=== PATIENT | female | born 1945 | race Caucasian/White ===

== ENCOUNTER 2023-12-11 19:49 | Observation (INO) | payer MEDICARE, SELFPAY ==
[2023-12-11] VITALS (11 sets, daily range): BP systolic 144–174; BP diastolic 77–117; PULSE 71–85; RESP 15–30; TEMP 36.2–36.6; O2SAT 96–97; BMI 31.4
--- NOTE | 2023-12-11 20:20 | CT_ITS ---
EXAM: CT HEAD WITHOUT INTRAVENOUS CONTRAST CLINICAL INDICATION: confusion TECHNIQUE: Multiple axial images were obtained of the head without intravenous contrast. This CT exam was performed using one or more of the following dose reduction techniques: automated exposure control, adjustment of the mA and/or kV according to patient size, and/or use of iterative reconstruction technique. COMPARISON: No relevant prior studies available. FINDINGS: BRAIN AND EXTRA-AXIAL SPACES: There is encephalomalacia in the left parietal occipital lobe from remote infarct. There is hypoattenuation periventricular white matter. There is mild enlargement of ventricular system and cortical sulci. No intra- or extra-axial hemorrhage. No intracranial mass or mass effect. Posterior fossa structures are unremarkable. Basal cisterns are patent. BONES/JOINTS: Unremarkable. No discrete lytic or blastic abnormalities. SINUSES: Unremarkable as visualized. Clear. MASTOID AIR CELLS: Unremarkable. Clear. ORBITS: Visualized globes, extraocular muscles, optic nerves and retrobulbar fat appear unremarkable. CT/Brain/Head without Contrast IMPRESSION: 1. No acute intracranial abnormality. 2. Remote infarct in the left parietal-occipital region. 3. Underlying senescent change with small vessel ischemia. Electronically Signed: Jesse Pittman MD at 21:42 EDT ,
--- NOTE | 2023-12-11 20:22 | RAD_ITS ---
EXAM: XR LEFT FOOT COMPLETE, 3 OR MORE VIEWS CLINICAL INDICATION: pain TECHNIQUE: Frontal, lateral and oblique views of the left foot. COMPARISON: 06/03/2014 FINDINGS: BONES/JOINTS: Bones are osteopenic. There is hardware from previous fusion of the posterior subtalar, calcaneocuboid and talonavicular joints. No acute fracture. No subluxation. Normal alignment. No sclerotic or destructive changes observed. SOFT TISSUES: Unremarkable. No soft tissue swelling or gas. No radiopaque foreign body. RAD/Foot min 3 Views IMPRESSION: Osteopenia with no acute osseous abnormalities. There is hardware from previous fusion of several joints of the foot. Electronically Signed: Jesse Pittman MD at 21:48 EDT ,
[2023-12-11 20:33] LABS: Absolute Lymphocyte Count 1.07 X10^3/uL (0.83-4.51); Absolute Neutrophil Count 7.8 X10^3/uL (2.0-7.7); Basophil# 0.03 X10^3/uL; Basophil% 0.3 % (0-1); Eosinophil# 0.01 X10^3/uL; Eosinophils% 0.1 % (0-5); Hematocrit 37.1 % (37-47); Hemoglobin 12.6 g/dL (12.0-15.0); Lymphocyte # 1.07 X10^3/ul (0.83-4.51); Lymphocyte % 11.3 % (19-41); Mean Corpuscular Hgb 32.4 pg (27.0-32.0); Mean Corpuscular Volume 95.4 fL (81-99); Monocyte# 0.54 X10^3/uL; Monocyte% 5.7 % (0-10); NRBC Flagged by Analyzer 0 % (0-5); Neutrophil # 7.81 X10^3/uL (2.7-7.7); Neutrophil % 82.2 % (47-70); Platelet Count 183 K/mm3 (150-450); RBC Distribution Width CV 13.3 % (11.6-14.6); Red Blood Count 3.89 M/mm3 (4.2-5.4); White Blood Count 9.5 K/mm3 (4.4-11.0)
[2023-12-11 20:42] LABS: Bacteria 0 SEEN /hpf (None Seen); Mucous, Urine 0 SEEN /hpf (<or=2+); Red Blood Cells-Urine 0 SEEN /hpf (0-5); Squamous Epithelial Cells - UA 0 SEEN /hpf (5-10); White Blood Cells 0 SEEN /hpf (0-5)
[2023-12-11 20:43] LABS: Color, Urine Yellow (Yellow); Glucose, Dipstick Normal (Normal); Ketone-Dipstick Negative (Negative); Leukocyte Esterase-Dipstick Negative /ul (Negative); Nitrite-Dipstick Negative (Negative); Occult Blood-Urine Negative /ul (Negative); Protein-Dipstick Negative (Negative); Specific Gravity, Urine 1.015 (1.002-1.030); Urine Bilirubin Dipstick Negative (Negative); Urine Clarity Clear (Clear); Urine Urobilinogen Normal (Normal)
--- NOTE | 2023-12-11 20:48 | RAD_ITS ---
EXAM: XR CHEST, 2 VIEWS CLINICAL INDICATION: weakness TECHNIQUE: Frontal and lateral views of the chest. COMPARISON: No relevant prior studies available. FINDINGS: LUNGS AND PLEURAL SPACES: There is minimal right lower lobe airspace disease. No pneumothorax. No effusion. HEART: Unremarkable. Cardiac silhouette not enlarged. MEDIASTINUM: Central airways and mediastinal contour are unremarkable. BONES/JOINTS: Unremarkable. No acute fracture. SOFT TISSUES: Unremarkable. RAD/Chest PA and Lateral IMPRESSION: Minimal right lower lobe airspace disease which may represent atelectasis or early pneumonia. There are no effusions identified. Electronically Signed: Jesse Pittman MD at 21:45 EDT ,
[2023-12-11 20:50] LABS: Anion Gap 6 (5-15); BUN 20 mg/dL (7-18); BUN/Creat Ratio 15.7 RATIO (10-20); Chloride 107 mmol/L (98-107); Creatinine, Serum 1.27 mg/dL (0.55-1.02); EST Glomerular Filtration Rate 43 mL/min (>60); Est Glom Filt Rate - Afr Amer 52 mL/min (>60); Estimated Creatinine Clearance 36.82 ml/min; Glucose 141 mg/dL (74-106); Sodium Level 141 mmol/L (136-145)
[2023-12-11 20:55] LABS: Hyaline Cast 0-5 SEEN /lpf (0-5)
--- NOTE | 2023-12-11 21:00 | EX.ED.DYSGE1 ---
HPI <PETER Buckner - Last Filed: 12/11/23 22:32> History of Present Illness Chief Complaint: General Illness Narrative Narrative: Patient presenting today with her family due to concerns for patient being, out of it. reports that he came home around 10:30 AM after going to get blood work done and found patient sitting at the bottom of the steps. Normally she takes her lift chair down the steps but decided to scoot down the stairs on her bottom because she was unable to get into her chair. She denies hitting her head or injuring herself in the process. reports that this afternoon she seemed out of it, she was talking slow, she was complaining of feeling lightheaded, and was unable to ambulate. He reports that normally she is able to ambulate with a cane. She does report a history of chronic left foot pain, reports that she refuses to go to physical therapy for this or follow-up with the turbine operator. She does have a history of CVA, atrial fibrillation, and hypertension but is not compliant with her medication, she is supposed to be on Eliquis but does not take this regularly. She denies any fevers, chills, chest pain, shortness of breath, abdominal pain, nausea, and vomiting. PFSH <PETER Buckner - Last Filed: 12/11/23 22:32> [facility] Medical History Afib Hyperlipemia Hypertension Stroke Home Medications ibuprofen 200 mg tablet 200 mg PO PRN PRN Pain 05/16/14 [History Last Taken Unknown] losartan 100 mg tablet 100 mg PO BID 05/16/14 [History Last Taken 06/03/14 0700] multivitamin with folic acid 400 mcg tablet (Thera) 1 tab PO DAILY 05/16/14 [History Last Taken Unknown] carvedilol 12.5 mg tablet 12.5 mg PO BID 06/03/14 [History Last Taken 06/03/14 07:00] enoxaparin 100 mg/mL subcutaneous syringe 90 mg (0.9 mL) subcut Q12@0600,1800 ##10 06/08/14 [Rx Last Taken Unknown] oxycodone 5 mg tablet 5 - 10 mg (1 - 2 x 5 mg) PO Q4H PRN PRN Pain ##60 06/08/14 [Rx Last Taken Unknown] warfarin 5 mg tablet (Jantoven) 5 mg PO DAILY@1700 ##30 06/08/14 [Rx Last Taken Unknown] Allergy/AdvReac Type Severity Reaction Status Date / Time No Known Allergies Allergy Verified 12/11/23 19:50 Social History Smoking Status: Former smoker ROS <PETER Buckner - Last Filed: 12/11/23 22:32> ROS ED Constitutional Constitutional ED: Denies chills or fever(s) Cardiovascular Cardiovascular: Denies chest pain or palpitations Respiratory/Chest Respiratory/Chest: Denies cough or dyspnea Gastrointestinal Gastrointestinal: Denies abdominal pain, nausea or vomiting Genitourinary Genitourinary ED: Denies dysuria, hematuria or urinary urgency Musculoskeletal Musculoskeletal: Reports arthralgias; Denies myalgias Integumentary Denies Abrasions or rash Neurologic Neurologic: Reports weakness; Denies paresthesias EXAM <PETER Buckner - Last Filed: 12/11/23 22:32> Physical Exam Const Vital Signs: 12/11/23 19:50 12/11/23 19:50 12/11/23 20:11 Temperature 97.1 F L Temperature Source Temporal Pulse Rate 75 72 Respiratory Rate 19 H 28 H Respiratory Effort Normal Non-Labored Respiratory Pattern Normal Blood Pressure 144/77 H Blood Pressure Mean 99 Pulse Ox 97 Oxygen Delivery Method Room Air 12/11/23 20:15 12/11/23 20:30 12/11/23 20:45 Temperature Temperature Source Pulse Rate 85 81 Respiratory Rate 30 H 23 H Respiratory Effort Respiratory Pattern Blood Pressure 166/85 H 148/89 H 150/95 H Blood Pressure Mean 111 104 108 Pulse Ox Oxygen Delivery Method 12/11/23 21:00 12/11/23 21:15 12/11/23 21:30 Temperature Temperature Source Pulse Rate 78 77 71 Respiratory Rate 22 H 26 H 23 H Respiratory Effort Respiratory Pattern Blood Pressure 156/117 H 147/94 H 157/97 H Blood Pressure Mean 130 112 116 Pulse Ox Oxygen Delivery Method 12/11/23 21:45 12/11/23 22:00 12/11/23 22:50 Temperature 97.8 F Temperature Source Pulse Rate 75 79 73 Respiratory Rate 17 16 15 Respiratory Effort Respiratory Pattern Blood Pressure 174/83 H 149/105 H 170/94 H Blood Pressure Mean 109 117 119 Pulse Ox 96 96 96 Oxygen Delivery Method Room Air Room Air Positive well nourished, well developed and no apparent distress General Appearance ED: well developed HEENT Reports normocephalic and head/scalp atraumatic Mouth ED: Yes moist mucous membranes normal Eyes PERRL and EOMs intact bilaterally Neck full ROM and supple Chest Wall inspection of chest normal Resp normal respiratory effort and clear to auscultation bilaterally Cardio regular rate and regular rhythm GI soft to palpation, non-tender, non-distended and no masses Back/Spine normal ROM and normal to inspection Extremity normal to inspection and full ROM Neuro oriented x3, CN's II-XII intact bilaterally, moves all extremities, no focal motor deficits and no sensory deficits noted Neuro Narrative: NIH 0 Sensorium / Orientation: awake and alert Psych mental status grossly normal and thought process normal Skin no rashes or lesions noted and no wounds <Dr. Ferny Curran, DO - Last Filed: 12/11/23 23:13> Physical Exam Const Vital Signs: 12/11/23 19:50 12/11/23 19:50 12/11/23 20:11 Temperature 97.1 F L Temperature Source Temporal Pulse Rate 75 72 Respiratory Rate 19 H 28 H Respiratory Effort Normal Non-Labored Respiratory Pattern Normal Blood Pressure 144/77 H Blood Pressure Mean 99 Pulse Ox 97 Oxygen Delivery Method Room Air 12/11/23 20:15 12/11/23 20:30 12/11/23 20:45 Temperature Temperature Source Pulse Rate 85 81 Respiratory Rate 30 H 23 H Respiratory Effort Respiratory Pattern Blood Pressure 166/85 H 148/89 H 150/95 H Blood Pressure Mean 111 104 108 Pulse Ox Oxygen Delivery Method 12/11/23 21:00 12/11/23 21:15 12/11/23 21:30 Temperature Temperature Source Pulse Rate 78 77 71 Respiratory Rate 22 H 26 H 23 H Respiratory Effort Respiratory Pattern Blood Pressure 156/117 H 147/94 H 157/97 H Blood Pressure Mean 130 112 116 Pulse Ox Oxygen Delivery Method 12/11/23 21:45 12/11/23 22:00 12/11/23 22:50 Temperature 97.8 F Temperature Source Pulse Rate 75 79 73 Respiratory Rate 17 16 15 Respiratory Effort Respiratory Pattern Blood Pressure 174/83 H 149/105 H 170/94 H Blood Pressure Mean 109 117 119 Pulse Ox 96 96 96 Oxygen Delivery Method Room Air Room Air [facility] <PETER Buckner - Last Filed: 12/11/23 22:32> [facility] Narrative Medical decision making narrative: Patient reporting due to decreased ambulation that started today and generalized weakness. She is well-appearing and in no acute distress. She brought in her medications that she reported she is taking regularly but they all in 2019, does not appear she is compliant with her medicine. reports that she has not seen a PCP in a long time and refuses to follow-up, she also refuses to follow-up with a turbine operator for her chronic left foot pain. However, family is concerned due to patient being unable to ambulate today, is not able to take care of her if she cannot walk. Family reports concerns for stroke, however she does not have any neurological deficits, NIH is 0. Workup will be obtained. Nurse did try to ambulate patient but she was having a hard time even getting out of the bed, for this reason I will contact the hospitalist. Lab Data Attestation: I reviewed the patient's lab results. Lab results narrative: BUN 20, creatinine 1.27 Labs: Laboratory Results - last 24 hr 12/11/23 12/11/23 20:26 20:36 WBC 9.5 RBC 3.89 L Hgb 12.6 Hct 37.1 MCV 95.4 MCH 32.4 H MCHC 34.0 RDW Std Deviation 47.0 H RDW Coeff of David 13.3 Plt Count 183 MPV 10.0 Immature Gran % (Auto) 0.400 Neut % (Auto) 82.2 H Lymph % (Auto) 11.3 L [place] % (Auto) 5.7 Eos % (Auto) 0.1 Baso % (Auto) 0.3 Absolute Neuts (auto) 7.8 H Absolute Lymphs (auto) 1.07 Nucleated RBC % 0 Sodium 141 Potassium 4.0 Chloride 107 Carbon Dioxide 28.0 Anion Gap 6 BUN 20 H Creatinine 1.27 H Estim Creat Clear Calc 36.82 Est GFR (MDRD) Af Amer 52 L Est GFR (MDRD) Non-Af 43 L BUN/Creatinine Ratio 15.7 Glucose 141 H Calcium 9.0 Urine Color Yellow Urine Clarity Clear Urine pH 5.0 Ur Specific [place] 1.015 Urine Protein Negative Urine Glucose (UA) Normal Urine Ketones Negative Urine Occult Blood Negative Urine Nitrite Negative Urine Bilirubin Negative Urine Urobilinogen Normal Ur Leukocyte Esterase Negative Urine RBC 0 SEEN Urine WBC 0 SEEN Ur Squamous Epith Cells 0 SEEN Urine Bacteria 0 SEEN Hyaline Casts 0-5 SEEN Urine Mucus 0 SEEN Radiography X-Ray: Read by ED Physician Diagnostic Testing: Clinical Impression(s) from Imaging Studies Brain CT 12/11/23 20:20 IMPRESSION: 1. No acute intracranial abnormality. 2. Remote infarct in the left parietal-occipital region. 3. Underlying senescent change with small vessel ischemia. Electronically Signed: Jesse Pittman MD at 21:42 EDT , Foot X-Ray 12/11/23 20:22 IMPRESSION: Osteopenia with no acute osseous abnormalities. There is hardware from previous fusion of several joints of the foot. Electronically Signed: Jesse Pittman MD at 21:48 EDT , Chest X-Ray 12/11/23 20:48 IMPRESSION: Minimal right lower lobe airspace disease which may represent atelectasis or early pneumonia. There are no effusions identified. Electronically Signed: Jesse Pittman MD at 21:45 EDT , EKG Initial EKG: Comments: 79 bpm, A-fib with PVCs, no ST elevation <Dr. Ferny Curran, DO - Last Filed: 12/11/23 23:13> [facility] Narrative Medical decision making narrative: Patient reporting due to decreased ambulation that started today and generalized weakness. She is well-appearing and in no acute distress. She brought in her medications that she reported she is taking regularly but they all in 2019, does not appear she is compliant with her medicine. reports that she has not seen a PCP in a long time and refuses to follow-up, she also refuses to follow-up with a turbine operator for her chronic left foot pain. However, family is concerned due to patient being unable to ambulate today, is not able to take care of her if she cannot walk. Family reports concerns for stroke, however she does not have any neurological deficits, NIH is 0. Workup will be obtained. Nurse did try to ambulate patient but she was having a hard time even getting out of the bed, for this reason I will contact the hospitalist. I have personally performed a face to face assessment of the patient and have reviewed the STEVE Note. I performed a substantive portion of the visit including all aspects of the following. My duffy findings include: History: 78-year-old female brought to the emergency room with confusion and inability to walk. There is no consensus as to what medications the patient is taking. Her pill bottles are dated from 2019 yet they are full. She is unsure why as she tells me that her takes care of the medicines. stated that she takes care of the medicines. She tells me that the girls gave me a whole bunch of new medicines the other day. She cannot really tell me what that means or who the girls are. She is reportedly on Eliquis. There is concern for the patient not being able to ambulate today would not she fell or had a stroke but she tells me its due to chronic left foot pain. Ambulance needed to be called Exam: Patient's NIH is 0. She is alert and she knows her name and where she is at but she does not know the basics of what is going on at home. I do not see anything focal on her exam that would help including into an emergency. Medical Decision Making: Basic blood work is negative. Creatinine 1.27 glucose 141. Urinalysis is does not show any overt infection. My depend interpretation of the chest x-ray is no acute process. My independent interpretation of the foot x-rays are no acute process. CT of the brain is negative. EKG is rate controlled A-fib. Patient cannot get up she can barely move herself in the bed and do not believe her is in any way able to care for her in the current state. There is a high likelihood this patient may need to be placed. It was reported the patient was on Coumadin but she is taking Eliquis from all information that I can see. Plan will be admission. History & Record Review Discussion w/independent historian: Patient Lab Data Labs: Laboratory Results - last 24 hr 12/11/23 12/11/23 20:26 20:36 WBC 9.5 RBC 3.89 L Hgb 12.6 Hct 37.1 MCV 95.4 MCH 32.4 H MCHC 34.0 RDW Std Deviation 47.0 H RDW Coeff of David 13.3 Plt Count 183 MPV 10.0 Immature Gran % (Auto) 0.400 Neut % (Auto) 82.2 H Lymph % (Auto) 11.3 L [place] % (Auto) 5.7 Eos % (Auto) 0.1 Baso % (Auto) 0.3 Absolute Neuts (auto) 7.8 H Absolute Lymphs (auto) 1.07 Nucleated RBC % 0 Sodium 141 Potassium 4.0 Chloride 107 Carbon Dioxide 28.0 Anion Gap 6 BUN 20 H Creatinine 1.27 H Estim Creat Clear Calc 36.82 Est GFR (MDRD) Af Amer 52 L Est GFR (MDRD) Non-Af 43 L BUN/Creatinine Ratio 15.7 Glucose 141 H Calcium 9.0 Urine Color Yellow Urine Clarity Clear Urine pH 5.0 Ur Specific [place] 1.015 Urine Protein Negative Urine Glucose (UA) Normal Urine Ketones Negative Urine Occult Blood Negative Urine Nitrite Negative Urine Bilirubin Negative Urine Urobilinogen Normal Ur Leukocyte Esterase Negative Urine RBC 0 SEEN Urine WBC 0 SEEN Ur Squamous Epith Cells 0 SEEN Urine Bacteria 0 SEEN Hyaline Casts 0-5 SEEN Urine Mucus 0 SEEN Radiography Diagnostic Testing: Clinical Impression(s) from Imaging Studies Brain CT 12/11/23 20:20 IMPRESSION: 1. No acute intracranial abnormality. 2. Remote infarct in the left parietal-occipital region. 3. Underlying senescent change with small vessel ischemia. Electronically Signed: Jesse Pittman MD at 21:42 EDT , Foot X-Ray 12/11/23 20:22 IMPRESSION: Osteopenia with no acute osseous abnormalities. There is hardware from previous fusion of several joints of the foot. Electronically Signed: Jesse Pittman MD at 21:48 EDT , Chest X-Ray 12/11/23 20:48 IMPRESSION: Minimal right lower lobe airspace disease which may represent atelectasis or early pneumonia. There are no effusions identified. Electronically Signed: Jesse Pittman MD at 21:45 EDT , Discharge Plan Dx/Rx/DC Orders Clinical Impression: Weakness, Inability to walk Disposition Disposition: Acute Care Hospital [facility]
--- NOTE | 2023-12-11 22:30 | HP.PCM.HOS_ITS ---
[facility] - General General Date of Admission: 12/11/23 Date of Service: 12/11/23 Chief Complaint: Generalized Weakness and mild confusion. HPI Narrative NEGRA HARRIS, is a 78 F with a past medical history of essential hypertension, hyperlipidemia, obesity; with BMI of 31.4 this admission, history of atrial fibrillation; with patient noncompliant with her medications, history of CVA, osteoarthritis; with chronic left foot pain and chronic ambulatory dysfunction; with patient typically mobilizing with a cane who presents to [facility] ER complaining of generalized weakness and mild confusion. Mrs. Harris reports her symptoms began around 10:30 AM after she came home from getting blood work done with her finding her at the bottom of the steps. Normally she takes her lift chair down the steps beside it to scoot down the stairs on her bottom because she was unable to get into the chair with associated transient dizziness and lightheadedness. She denies hitting her head or having a loss of consciousness. After that her states he noted mild confusion and that she was out of it exemplified by her talking slowly complaining of feeling lightheaded and being unable to ambulate. She also complained of chronic left foot pain with patient refusing to undergo physical therapy or follow-up with a motor overhauler. She denies associated fever, chills, nausea, vomiting, chest pain, shortness of breath, abd ominal pain or other significant symptoms other than having difficulty walking due to generalized weakness. In the ER she was noted to have normal vital signs and unremarkable laboratory tests including a negative urinalysis with a chest x-ray that showed minimal right lower lobe atelectasis, and an x-ray of the left foot that showed osteopenia with no acute osseous abnormalities with hardware fr om previous fusion of several joints of the foot and head CT without contrast that revealed a remote infarct in the left parietal occipital region with no acute intracranial abnormality but because she was not able to ambulate independently the ER practitioner saw hospitalist admission to the general medical floor under observation status for a stay that is expected to be less than 48 hours. [facility] Medical History Afib Hyperlipemia Hypertension Stroke Home Medications ibuprofen 200 mg tablet 200 mg PO PRN PRN Pain 05/16/14 [History Last Taken Unknown] losartan 100 mg tablet 100 mg PO BID 05/16/14 [History Last Taken 06/03/14 0700] multivitamin with folic acid 400 mcg tablet (Thera) 1 tab PO DAILY 05/16/14 [History Last Taken Unknown] carvedilol 12.5 mg tablet 12.5 mg PO BID 06/03/14 [History Last Taken 06/03/14 07:00] enoxaparin 100 mg/mL subcutaneous syringe 90 mg (0.9 mL) subcut Q12@0600,1800 ##10 06/08/14 [Rx Last Taken Unknown] oxycodone 5 mg tablet 5 - 10 mg (1 - 2 x 5 mg) PO Q4H PRN PRN Pain ##60 06/08/14 [Rx Last Taken Unknown] warfarin 5 mg tablet (Jantoven) 5 mg PO DAILY@1700 ##30 06/08/14 [Rx Last Taken Unknown] Allergy/AdvReac Type Severity Reaction Status Date / Time No Known Allergies Allergy Verified 12/11/23 19:50 Social History Smoking Status: Former smoker ROS ROS Narrative Review of systems: General: Patient denies fever or chills. HENT: Denies headache, denies stuffy nose, denies sore throat EYES: Denies changes in vision or discharge from eyes. Resp: Denies cough, denies shortness of breath Cardiac: Denies chest pain or palpitations. GI: Denies abdominal pain, denies changes in bowel, had some nausea : Denies changes in urination Extremity: Denies swelling Musculoskeletal: Feels somewhat generally weak and unwell with severe left foot pain as per HPI. Neuro: Denies any numbness/tingling Heme: Denies any bleeding or bruising Skin: Denies rashes Psychiatric: No complaints voiced related to uncontrolled depression or anxiety. Endocrine: No polyuria, polydipsia or polyphagia. The rest of the 14 point ROS was negative except for positives in HPI. Vital Signs Vital Signs Vital Signs: 12/11/23 19:50 12/11/23 19:50 12/11/23 20:11 Temperature 97.1 F L Temperature Source Temporal Pulse Rate 75 72 Respiratory Rate 19 H 28 H Respiratory Effort Normal Non-Labored Respiratory Pattern Normal Blood Pressure 144/77 H Blood Pressure Mean 99 Pulse Ox 97 Oxygen Delivery Method Room Air 12/11/23 20:15 12/11/23 20:30 12/11/23 20:45 Temperature Temperature Source Pulse Rate 85 81 Respiratory Rate 30 H 23 H Respiratory Effort Respiratory Pattern Blood Pressure 166/85 H 148/89 H 150/95 H Blood Pressure Mean 111 104 108 Pulse Ox Oxygen Delivery Method 12/11/23 21:00 12/11/23 21:15 12/11/23 21:30 Temperature Temperature Source Pulse Rate 78 77 71 Respiratory Rate 22 H 26 H 23 H Respiratory Effort Respiratory Pattern Blood Pressure 156/117 H 147/94 H 157/97 H Blood Pressure Mean 130 112 116 Pulse Ox Oxygen Delivery Method 12/11/23 21:45 Temperature Temperature Source Pulse Rate 75 Respiratory Rate 17 Respiratory Effort Respiratory Pattern Blood Pressure 174/83 H Blood Pressure Mean 109 Pulse Ox 96 Oxygen Delivery Method Room Air Weight Weight: 183 lb Body Mass Index (BMI) 31.4 Physical Exam Const alert, oriented x3 and no apparent distress Constitutional Narrative: Patient is obese and has a chronically ill appearance. General Appearance: cooperative HEENT normocephalic, head/scalp atraumatic, hearing grossly normal bilaterally and moist oral mucous membranes Eyes PERRL and EOMs intact bilaterally Neck no lymphadenopathy and supple Resp normal respiratory effort, no retractions, no use of accessory muscles and clear to auscultation bilaterally Cardio regular rate and regular rhythm GI normal to inspection, nondistended, normoactive bowel sounds, soft to palpation, non-tender and non-distended GI Narrative: Obese. Extremity normal to inspection, full ROM and no clubbing, cyanosis or edema Skin Skin Narrative: Patient has no evidence of rash at this time. Neuro oriented x3, CN's II-XII intact bilaterally, moves all extremities and no focal motor deficits Sensorium / Orientation: awake, alert, oriented to person, oriented to place and oriented to time Speech: speech normal Psych affect normal Results Medical Records Data Attestation: I reviewed the patient's medical records Lab / Micro Data Attestation: I reviewed the patient's lab results. 12/11/23 20:26 12/11/23 20:26 Labs: Laboratory Results - last 24 hr 12/11/23 20:26: WBC 9.5, RBC 3.89 L, Hgb 12.6, Hct 37.1, MCV 95.4, MCH 32.4 H, MCHC 34.0, RDW Std Deviation 47.0 H, RDW Coeff of David 13.3, Plt Count 183, MPV 10.0, Immature Gran % (Auto) 0.400, Neut % (Auto) 82.2 H, Lymph % (Auto) 11.3 L, [place] % (Auto) 5.7, Eos % (Auto) 0.1, Baso % (Auto) 0.3, Absolute Neuts (auto) 7.8 H, Absolute Lymphs (auto) 1.07, Nucleated RBC % 0, Sodium 141, Potassium 4.0, Chloride 107, Carbon Dioxide 28.0, Anion Gap 6, BUN 20 H, Creatinine 1.27 H , Estim Creat Clear Calc 36.82, Est GFR (MDRD) Af Amer 52 L, Est GFR (MDRD) Non- Af 43 L, BUN/Creatinine Ratio 15.7, Glucose 141 H, Calcium 9.0 12/11/23 20:36: Urine Color Yellow, Urine Clarity Clear, Urine pH 5.0, Ur Specific [place] 1.015, Urine Protein Negative, Urine Glucose (UA) Normal, Urine Ketones Negative, Urine Occult Blood Negative, Urine Nitrite Negative, Urine Bilirubin Negative, Urine Urobilinogen Normal, Ur Leukocyte Esterase Negative, Urine RBC 0 SEEN, Urine WBC 0 SEEN, Ur Squamous Epith Cells 0 SEEN, Urine Bacteria 0 SEEN, Hyaline Casts 0-5 SEEN, Urine Mucus 0 SEEN Imaging Radiology Impression Brain CT 12/11/23 20:20 IMPRESSION: 1. No acute intracranial abnormality. 2. Remote infarct in the left parietal-occipital region. 3. Underlying senescent change with small vessel ischemia. Electronically Signed: Jesse Pittman MD at 21:42 EDT , Foot X-Ray 12/11/23 20:22 IMPRESSION: Osteopenia with no acute osseous abnormalities. There is hardware from previous fusion of several joints of the foot. Electronically Signed: Jesse Pittman MD at 21:48 EDT , Chest X-Ray 12/11/23 20:48 IMPRESSION: Minimal right lower lobe airspace disease which may represent atelectasis or early pneumonia. There are no effusions identified. Electronically Signed: Jesse Pittman MD at 21:45 EDT , Assessment & Plan Assessment/Plan (1) Generalized weakness: (2) Ambulatory dysfunction: (3) Osteoarthritis of ankle or foot: QUALIFIERS: Laterality: left Qualified Code(s): M19.072 - Primary osteoarthritis, left ankle and foot (4) Medical non-compliance: PLAN: Plan 1. Generalized weakness with ambulatory dysfunction - Admit to general medical floor under observation status. PT/OT and case management consult and treat on rounds in the a.m. for further recommendations with help appreciated in advance. 2. Chronic osteoarthritis of the left foot with previous fusion of several joints and associated chronic pain complicating #1 - Give Tylenol as needed pain or fever. We will also place Lidoderm patch over left foot in an effort to provide analgesia without potential DIRECTOR CALL CENTER SALES side effects. 3. History of atrial fibrillation; with patient noncompliant with her medications in spite of previous left parietal occipital CVA - Patient was encouraged to take her medications as prescribed. Currently in normal sinus rhythm. 4. Obesity; with BMI of 31.4 this admission - Weight loss will be recommended. Check TSH in light of #1. 5. Essential hypertension - Continue home medications as previous plus give as needed IV hydralazine for systolic blood pressure greater than 160 mmHg. 6. Hyperlipidemia - Resume statin. 7. DVT prophylaxis - Lovenox 40 mg subcu daily. Total time: Approximately 45 minutes. Charges/Coding Visit Charges OBSV E&M: 71432 Observ/hosp same date L1
[2023-12-12] MEDS: 0.9% Normal Saline (1000mL) 1,000 ML 70 ML IV (00:06)
[2023-12-12 00:12] VITALS: BMI 31.4
[2023-12-12 00:30] VITALS: BP 151/100; PULSE 77; RESP 18; TEMP 36.5; O2SAT 94
[2023-12-12 06:27] VITALS: BP 156/95; PULSE 78; RESP 18; TEMP 36.5; O2SAT 18
[2023-12-12 06:46] LABS: Absolute Lymphocyte Count 1.98 X10^3/uL (0.83-4.51); Absolute Neutrophil Count 5.4 X10^3/uL (2.0-7.7); Basophil# 0.03 X10^3/uL; Basophil% 0.4 % (0-1); Eosinophil# 0.06 X10^3/uL; Eosinophils% 0.8 % (0-5); Hematocrit 37.4 % (37-47); Hemoglobin 12.6 g/dL (12.0-15.0); Lymphocyte # 1.98 X10^3/ul (0.83-4.51); Lymphocyte % 24.8 % (19-41); Mean Corp Hgb Conc 33.7 g/dL (32-36); Mean Corpuscular Hgb 31.9 pg (27.0-32.0); Mean Corpuscular Volume 94.7 fL (81-99); Mean Platelet Vol. 9.9 fl (6.2-12.0); Monocyte# 0.54 X10^3/uL; Monocyte% 6.8 % (0-10); NRBC Flagged by Analyzer 0 % (0-5); Neutrophil # 5.35 X10^3/uL (2.7-7.7); Neutrophil % 66.9 % (47-70); Platelet Count 180 K/mm3 (150-450); RBC Distribution Width CV 13.1 % (11.6-14.6); RBC Distribution Width SD 45.3 fl (35.1-43.9); Red Blood Count 3.95 M/mm3 (4.2-5.4)
--- NOTE | 2023-12-12 06:58 | PCM.PN.HOSP ---
Reason for Visit Reason for Visit: Diagnoses Primary osteoarthritis, left ankle and foot (12/11/23) Difficulty in walking, not elsewhere classified (12/11/23) Weakness (12/11/23) Patient's noncompliance with other medical treatment and regimen due to unspecified reason (12/11/23) Subjective Subjective No new events. Objective Data Objective Data Vital Signs: Vital Signs Temp Pulse Resp BP Pulse Ox O2 Del Method 36.5 C L 78 18 156/95 H 18 Room Air 12/12/23 06:27 12/12/23 06:27 12/12/23 06:27 12/12/23 06:27 12/12/23 06:27 12/12/23 06:27 Oxygen Delivery Method Room Air Weight: 85.7 kg Body Mass Index (BMI) 31.4 Intake & Output: Intake and Output for Last 24 Hours 12/10/23 12/11/23 12/12/23 23:59 23:59 23:59 Intake Total 0 / 0 Output Total 400 / 400 Balance 0 / 0 -400 / -400 Lab / Micro Data 12/12/23 06:35 12/12/23 06:35 Labs: Laboratory Results - last 24 hr 12/11/23 20:26: WBC 9.5, RBC 3.89 L, Hgb 12.6, Hct 37.1, MCV 95.4, MCH 32.4 H, MCHC 34.0, RDW Std Deviation 47.0 H, RDW Coeff of David 13.3, Plt Count 183, MPV 10.0, Immature Gran % (Auto) 0.400, Neut % (Auto) 82.2 H, Lymph % (Auto) 11.3 L, [place] % (Auto) 5.7, Eos % (Auto) 0.1, Baso % (Auto) 0.3, Absolute Neuts (auto) 7.8 H, Absolute Lymphs (auto) 1.07, Nucleated RBC % 0, Sodium 141, Potassium 4.0, Chloride 107, Carbon Dioxide 28.0, Anion Gap 6, BUN 20 H, Creatinine 1.27 H, Estim Creat Clear Calc 36.82, Est GFR (MDRD) Af Amer 52 L, Est GFR (MDRD) Non-Af 43 L, BUN/Creatinine Ratio 15.7, Glucose 141 H, Calcium 9.0 12/11/23 20:36: Urine Color Yellow, Urine Clarity Clear, Urine pH 5.0, Ur Specific [place] 1.015, Urine Protein Negative, Urine Glucose (UA) Normal, Urine Ketones Negative, Urine Occult Blood Negative, Urine Nitrite Negative, Urine Bilirubin Negative, Urine Urobilinogen Normal, Ur Leukocyte Esterase Negative, Urine RBC 0 SEEN, Urine WBC 0 SEEN, Ur Squamous Epith Cells 0 SEEN, Urine Bacteria 0 SEEN, Hyaline Casts 0-5 SEEN, Urine Mucus 0 SEEN 12/12/23 06:35: WBC 8.0, RBC 3.95 L, Hgb 12.6, Hct 37.4, MCV 94.7, MCH 31.9, MCHC 33.7, RDW Std Deviation 45.3 H, RDW Coeff of David 13.1, Plt Count 180, MPV 9.9, Immature Gran % (Auto) 0.300, Neut % (Auto) 66.9, Lymph % (Auto) 24.8, [place] % (Auto) 6.8, Eos % (Auto) 0.8, Baso % (Auto) 0.4, Absolute Neuts (auto) 5.4, Absolute Lymphs (auto) 1.98, Nucleated RBC % 0 Radiography Diagnostic Testing: Radiology Impression Brain CT 12/11/23 20:20 IMPRESSION: 1. No acute intracranial abnormality. 2. Remote infarct in the left parietal-occipital region. 3. Underlying senescent change with small vessel ischemia. Electronically Signed: Jesse Pittman MD at 21:42 EDT , Foot X-Ray 12/11/23 20:22 IMPRESSION: Osteopenia with no acute osseous abnormalities. There is hardware from previous fusion of several joints of the foot. Electronically Signed: Jesse Pittman MD at 21:48 EDT , Chest X-Ray 12/11/23 20:48 IMPRESSION: Minimal right lower lobe airspace disease which may represent atelectasis or early pneumonia. There are no effusions identified. Electronically Signed: Jesse Pittman MD at 21:45 EDT , Physical Exam Const alert and no apparent distress HEENT head/scalp atraumatic and moist oral mucous membranes Resp normal respiratory effort, no retractions, no use of accessory muscles and clear to auscultation bilaterally Cardio regular rate, regular rhythm, S1 normal heart sound and S2 normal heart sound GI normal to inspection, nondistended, normoactive bowel sounds, soft to palpation, non-tender and non-distended Extremity normal to inspection Assessment & Plan Assessment/Plan (1) Generalized weakness: (2) Ambulatory dysfunction: PLAN: Plan Acute on chronic debility at baseline, pt has a poor performance status and normally uses a chair lift PT OT evaluate and treat anticipate pt will need SNF Chronic conditions: Chronic osteoarthritis of the left foot with previous fusion of several joints and associated chronic pain complicating #1 - Give Tylenol as needed pain or fever. We will also place Lidoderm patch over left foot in an effort to provide analgesia without potential TRACK REPAIR PERSON side effects. History of atrial fibrillation; with patient noncompliant with her medications in spite of previous left parietal occipital CVA - Patient was encouraged to take her medications as prescribed. Currently in normal sinus rhythm. Obesity; with BMI of 31.4 this admission - Weight loss will be recommended. Essential hypertension - Continue home medications as previous plus give as needed IV hydralazine for systolic blood pressure greater than 160 mmHg. Hyperlipidemia - Resume statin. DVT prophylaxis - Lovenox 40 mg subcu daily. Charges/Coding Visit Charges Inpatient E&M: 04279 Subs Hosp L2
[2023-12-12 07:42] LABS: ALB/GLOB Ratio 0.9 RATIO (0.9-2.4); AST(SGOT) 18 U/L (15-37); Alanine Aminotransfer ALT/SGPT 16 U/L (13-56); Albumin, Serum 3.4 g/dL (3.2-5.0); Alkaline Phosphatase 79 U/L (45-117); Anion Gap 4 (5-15); BUN 18 mg/dL (7-18); BUN/Creat Ratio 19.2 RATIO (10-20); Calcium,Total 8.7 mg/dL (8.5-10.1); Chloride 108 mmol/L (98-107); Creatinine, Serum 0.94 mg/dL (0.55-1.02); EST Glomerular Filtration Rate 61 mL/min (>60); Est Glom Filt Rate - Afr Amer 74 mL/min (>60); Globulin 3.6 g/dL (2.2-4.2); Glucose 108 mg/dL (74-106); Magnesium 2.1 mg/dL (1.6-2.6); Potassium 3.5 mmol/L (3.5-5.1); Sodium Level 140 mmol/L (136-145); Thyroid Stim Hormone (TSH) 1.25 uIU/mL (0.358-3.74)
--- NOTE | 2023-12-12 08:54 | CASEMGMT ---
Social Work Pt has a Health Care Power of Weight Loss Centre Manager on file naming her spouse Liban Harris. Completed Living Will was found in the Echart and printed and placed on pt's chart. HECTOR Snyder
--- NOTE | 2023-12-12 08:57 | NURSING ---
called Dr. Wheeler office to get a home med list faxed.
--- NOTE | 2023-12-12 09:16 | CASEMGMT ---
Discharge Planning A list of?SNF providers including quality and resource use data and consistent with the patient's preferred geographic region, medical needs, and insurance network was created in [facility].? This list was provided to the SW. Blaire Franz Discharge Planning Asst.
[2023-12-12] MEDS: Multivitamins,Therapeutic Tablet 1 TABLET PO (09:31)
[2023-12-12] MEDS: Carvedilol 12.5 MG Tablet PO ×2 (09:31→18:46)
[2023-12-12] MEDS: Enoxaparin 40 MG/0.4 ML Syringe SC (09:32)
[2023-12-12] MEDS: Lidocaine 5% Patch 1 PATCH TOPICAL (09:32)
[2023-12-12 09:45] VITALS: BP 150/87; PULSE 76; RESP 18; TEMP 36.7; O2SAT 98
--- NOTE | 2023-12-12 11:02 | NURSING ---
called [facility] to check on scripts per pharmacy scripts have not been filled since 2021. asked the pt if they switched pharmacies and she states no and that she does forget to take per medications.
--- NOTE | 2023-12-12 14:43 | CASEMGMT ---
Social Work SW met with pt and introduced self and role of SW. SW spoke with pt regarding home situation. Pt states she lives in a two story home with 2 steps in. Pt's bed and bath are on the second floor but her spouses are on the first floor. Pt states she and spouse are going to swap rooms. Pt states she is able to complete own ADLs and her does the cooking and transportation. SW reviewed therapy notes with pt and discussed discharge plan. Pt is denying need for SNF but is agreeable to home health care. With pt permission, phone call to pt's spouse Liban. SW discussed therapy notes with Liban and presented dc options. Liban is not in favor of SNF but is agreeable to home health therapy. Liban states he is able to provide needed care for pt and has someone who can come to the house to assist if needed. Physician and RNCM tyler. HECTOR Snyder
--- NOTE | 2023-12-12 14:47 | DS.PCM_ITS ---
Providers Date of Admission: 12/11/23 Primary Care Physician: Dr. Kimberly Wheeler MD Reason For Visit: GENERALIZED WEAKNESS WITH AMBULATORY Diagnosis Discharge Diagnosis (1) Generalized weakness: Status: Acute Code(s): R53.1 - Weakness (2) Ambulatory dysfunction: Status: Acute Code(s): R26.2 - Difficulty in walking, not elsewhere classified Plan Acute on chronic debility * at baseline, pt has a poor performance status and normally uses a chair lift * PT OT evaluate and treat * Patient and her declined usp facility preferring to go home with home care. Chronic conditions: * Chronic osteoarthritis of the left foot with previous fusion of several joints and associated chronic pain complicating #1 - Give Tylenol as needed pain or fever. We will also place Lidoderm patch over left foot in an effort to provide analgesia without potential PERSONAL DEVELOPMENT EDUCATOR side effects. * History of atrial fibrillation; with patient noncompliant with her medications in spite of previous left parietal occipital CVA - Patient was encouraged to take her medications as prescribed. Currently in normal sinus rhythm. * Obesity; with BMI of 31.4 this admission - Weight loss will be recommended. * Essential hypertension - Continue home medications as previous plus give as needed IV hydralazine for systolic blood pressure greater than 160 mmHg. * Hyperlipidemia - Resume statin. DVT prophylaxis - Lovenox 40 mg subcu daily. Medications at Discharge Home Medications ibuprofen 200 mg tablet 200 mg PO PRN PRN Pain 05/16/14 multivitamin with folic acid 400 mcg tablet (Thera) 1 tab PO DAILY 05/16/14 apixaban 2.5 mg tablet (Eliquis) 2.5 mg PO BID blood thinner #60 tabs 12/12/23 carvedilol 12.5 mg tablet 12.5 mg PO BIDCM #60 tabs 12/12/23 Hospital Course Operations None Procedures None Summary of Care Provided Minutes Spent on Discharge: 32 Hospital Course: Patient presented with weakness unable to get into her stair lift. In the emergency room, patient was evaluated and workup was unremarkable. Patient was brought to the floor and case management discussed with patient and her and she would prefer to go home with home care. Additionally, patient has not had her medications filled since 2021. Patient will receive some of her medications that are on her list including her apixaban but she will need to follow-up with her primary care physician to resume other medications if that is necessary. Patient does have a history of atrial fibrillation and certainly would be a high risk for stroke without anticoagulation. Weight / BMI Weight Weight: 85.7 kg Body Mass Index (BMI) 31.4 ABG / Lab / Microbiology Data 12/12/23 06:35 12/12/23 06:35 Laboratory: Laboratory Results - last 24 hr 12/11/23 20:26: WBC 9.5, RBC 3.89 L, Hgb 12.6, Hct 37.1, MCV 95.4, MCH 32.4 H, MCHC 34.0, RDW Std Deviation 47.0 H, RDW Coeff of David 13.3, Plt Count 183, MPV 10.0, Immature Gran % (Auto) 0.400, Neut % (Auto) 82.2 H, Lymph % (Auto) 11.3 L, [place] % (Auto) 5.7, Eos % (Auto) 0.1, Baso % (Auto) 0.3, Absolute Neuts (auto) 7.8 H, Absolute Lymphs (auto) 1.07, Nucleated RBC % 0, Sodium 141, Potassium 4.0 , Chloride 107, Carbon Dioxide 28.0, Anion Gap 6, BUN 20 H, Creatinine 1.27 H, Estim Creat Clear Calc 36.82, Est GFR (MDRD) Af Amer 52 L, Est GFR (MDRD) Non-Af 43 L, BUN/Creatinine Ratio 15.7, Glucose 141 H, Calcium 9.0 12/11/23 20:36: Urine Color Yellow, Urine Clarity Clear, Urine pH 5.0, Ur Specific [place] 1.015, Urine Protein Negative, Urine Glucose (UA) Normal, Urine Ketones Negative, Urine Occult Blood Negative, Urine Nitrite Negative, Urine Bilirubin Negative, Urine Urobilinogen Normal, Ur Leukocyte Esterase Negative, Urine RBC 0 SEEN, Urine WBC 0 SEEN, Ur Squamous Epith Cells 0 SEEN, Urine Bacteria 0 SEEN, Hyaline Casts 0-5 SEEN, Urine Mucus 0 SEEN 12/12/23 06:35: WBC 8.0, RBC 3.95 L, Hgb 12.6, Hct 37.4, MCV 94.7, MCH 31.9, MCHC 33.7, RDW Std Deviation 45.3 H, RDW Coeff of David 13.1, Plt Count 180, MPV 9.9, Immature Gran % (Auto) 0.300, Neut % (Auto) 66.9, Lymph % (Auto) 24.8, [place] % (Auto) 6.8, Eos % (Auto) 0.8, Baso % (Auto) 0.4, Absolute Neuts (auto) 5.4, Absolute Lymphs (auto) 1.98, Nucleated RBC % 0, Sodium 140, Potassium 3.5, Chloride 108 H, Carbon Dioxide 28.0, Anion Gap 4 L, BUN 18, Creatinine 0.94, Estim Creat Clear Calc 51.60, Est GFR (MDRD) Af Amer 74, Est GFR (MDRD) Non-Af 61, BUN/Creatinine Ratio 19.2, Glucose 108 H, Calcium 8.7, Phosphorus 3.0, Magnesium 2.1, Total Bilirubin 0.60, AST 18, ALT 16, Alkaline Phosphatase 79, Total Protein 7.0, Albumin 3.4, Globulin 3.6, Albumin/Globulin Ratio 0.9, TSH 1.25 Radiography Diagnostic Testing: Radiology Impression Brain CT 12/11/23 20:20 IMPRESSION: 1. No acute intracranial abnormality. 2. Remote infarct in the left parietal-occipital region. 3. Underlying senescent change with small vessel ischemia. Electronically Signed: Jesse Pittman MD at 21:42 EDT , Foot X-Ray 12/11/23 20:22 IMPRESSION: Osteopenia with no acute osseous abnormalities. There is hardware from previous fusion of several joints of the foot. Electronically Signed: Jesse Pittman MD at 21:48 EDT , Chest X-Ray 12/11/23 20:48 IMPRESSION: Minimal right lower lobe airspace disease which may represent atelectasis or early pneumonia. There are no effusions identified. Electronically Signed: Jesse Pittman MD at 21:45 EDT , D/C Instructions Discharge Diet: No restrictions Meaningful Use Info Meaningful Use Diagnoses (Choose all that apply): None applicable Discharge Plan Admission Admit Date/Time: 12/11/23 22:50 Primary Reason for Your Visit: debility Attending Provider: Usman Gtz Primary Care Provider: Kimberly Wheeler Consulting Providers: Geovani Garibay Discharge Orders/Prescriptions Prescriptions: New carvedilol 12.5 mg Tablet 12.5 mg PO BIDCM Qty: 60 0RF Continued ibuprofen 200 MG tablet 200 mg PO PRN PRN (Reason: Pain) Patient Comments: Pain relife multivitamin with folic acid [Thera] 1 TABLET tablet 1 tab PO DAILY Patient Comments: supplement Eliquis 2.5 mg tablet 2.5 mg PO BID Qty: 60 0RF Discontinued losartan 100 MG tablet 100 mg PO BID Patient Comments: heart carvedilol 12.5 MG tablet 25 mg PO BID Patient Comments: heart warfarin [Jantoven] 5 MG tablet 5 mg PO DAILY@1700 Qty: 30 0RF oxycodone 5 MG tablet 5 - 10 mg PO Q4H PRN PRN (Reason: Pain) Qty: 60 0RF enoxaparin 100 MG/ML syringe 90 mg subcut Q12@0600,1800 Qty: 10 0RF hydralazine 25 mg tablet 25 mg PO BID rosuvastatin [Crestor] 20 mg tablet 20 mg PO DAILY magnesium oxide 400 mg magnesium capsule 400 mg PO DAILY vitamin E 670 mg (1,000 unit) capsule 670 mg PO DAILY cyanocobalamin (vitamin B-12) [Vitamin B-12] 500 mcg tablet 500 mcg PO DAILY Referrals / Follow Up: Kimberly Wheeler MD [Primary Care Provider] - Within 2 Weeks Disposition Disposition (needs filled in before D/C Order can be placed): Home Health Service Charges/Coding Visit Charges Inpatient E&M: 42886 Disch Hosp >30min
--- NOTE | 2023-12-12 15:01 | CASEMGMT ---
Met with patent to complete ALBA form. ALBA form explained to patient who voiced understanding and signed form. Original form placed in pt?s chart and copy provided to?patient. Blaire Franz, Discharge Planning Asst
--- NOTE | 2023-12-12 15:05 | PHA.DC.MC.R ---
Pharmacy [facility] has performed discharge medication reconciliation and counseling for this patient. The patient's discharge medication list was reviewed for discrepancies and discrepancies were resolved. The patient was counseled on the following discharge medications and changes in medications for homegoing were reviewed. The Reason for Use, instructions for use, and potential side effects were reviewed for all new medications. The patient's questions regarding all of their medications were answered. 1. Carvedilol 12.5 mg PO BID The patient was able to verbally demonstrate an understanding of their discharge medications. Medications at Discharge Home Medications ibuprofen 200 mg tablet 200 mg PO PRN PRN Pain 05/16/14 multivitamin with folic acid 400 mcg tablet (Thera) 1 tab PO DAILY 05/16/14 apixaban 2.5 mg tablet (Eliquis) 2.5 mg PO BID blood thinner #60 tabs 12/12/23 carvedilol 12.5 mg tablet 12.5 mg PO BIDCM #60 tabs 12/12/23
[2023-12-12 15:09] VITALS: BP 142/97; PULSE 61; RESP 17; TEMP 36.5; O2SAT 97
--- NOTE | 2023-12-12 15:12 | CASEMGMT ---
Discharge Planning A list of?HH providers including quality and resource use data and consistent with the patient's preferred geographic region, medical needs, and insurance network was created in [employer] Guide.? This list was provided to the RN SYLWIA. Blaire Franz, Discharge Planning Asst.
--- NOTE | 2023-12-12 16:06 | CASEMGMT ---
PURVI DAO updated by MARIMAR that patient and would like HHC at discharge. PURVI DAO in to discuss HHC with patient, list provide and prefers [facility]. RN CM called and made referral to [facility] and they are able to accept with Friday start of care. RN SYLWIA updated patient. RN CM called and updated . had no further questions or concerns at this time.
== END 2023-12-12 18:49 | disposition home health service (06) ==
LOC: ED 22:31 → MS3 23:23
PROVIDERS: Physician Assistant; Admitting Provider Internal Medicine; Emergency Provider Emergency Medicine; PCP Internal Medicine Geriatric Medicine
DX: R53.1 Weakness (principal); I48.91 Unspecified atrial fibrillation; Z91.199 Patient's noncompliance with other medical treatment and regimen due to unspecified reason; Z87.891 Personal history of nicotine dependence; E78.5 Hyperlipidemia, unspecified; Z79.01 Long term (current) use of anticoagulants; R26.2 Difficulty in walking, not elsewhere classified; I10 Essential (primary) hypertension; R42 Dizziness and giddiness; R41.0 Disorientation, unspecified; Z86.73 Personal history of transient ischemic attack (TIA), and cerebral infarction without residual deficits; Z79.899 Other long term (current) drug therapy; E66.9 Obesity, unspecified; Z68.31 Body mass index [BMI] 31.0-31.9, adult; M19.072 Primary osteoarthritis, left ankle and foot
CPT/HCPCS: 36415; 70450; 71046; 73630; 80048; 80053; 81001; 83735; 84100; 84443; 85025; 93005; 94668; 96372; 97162; 97166; 99221; 99252; 99285; J7030; A4216; G0378; G0463

== ENCOUNTER 2024-12-29 18:03 | Emergency (ER) | payer MEDICARE, SELFPAY ==
[2024-12-29 18:04] VITALS: BP 182/95; PULSE 70; RESP 18; TEMP 36.1; O2SAT 100
--- NOTE | 2024-12-29 18:14 | CT_ITS ---
EXAM: BRAIN/HEAD WITHOUT CONTRAST CLINICAL HISTORY: 79 y/o F with HEAD INJURY. COMPARISON: CT head 12/11/2023. TECHNIQUE: Routine CT imaging of the head without IV contrast. Additional multiplanar reformats were obtained. Dose reduction techniques were used including intermediate exposure control (AEC),iterative reconstruction technique, and/or mA and/or KV dose adjustments based on patient's size. FINDINGS: Mild generalized cerebral and cerebellar volume loss with concordant prominence of the ventricles and subarachnoid spaces. 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 Additional chronic infarct within the right frontoparietal region. Moderate patchy supratentorial white matter hypodensities. The vazquez-white matter interfaces are otherwise maintained. No acute intracranial hemorrhage or herniation. The orbits, visualized paranasal sinuses and mastoids are unremarkable. No acute osseous fracture. Moderate-sized hematoma along the right posterior scalp. CT/Brain/Head without Contrast IMPRESSION: 1. No acute intracranial finding. 2. Moderate-sized hematoma along the right posterior scalp. 3. Stable findings of remote infarcts, chronic microvascular ischemic changes a nd age-related changes. Reading Location: [id number]
--- NOTE | 2024-12-29 18:14 | CT_ITS ---
PROCEDURE: SPINE CERVICAL WITHOUT CONTRAS 12/29/2024 REASON FOR EXAM: 79-year-old female, NECK PAIN TECHNIQUE: Cervical spine CT without contrast. Coronal and Sagittal reconstruction series were provided. One or more dose reduction techniques were used (e.g., Automated exposure control, adjustment of the mA and/or kV according to patient size, use of iterative reconstruction technique RADIATION DOSE SUMMARY: See same day CT head. COMPARISON: None. FINDINGS: Alignment: Mild straightening of the normal cervical lordosis. No traumatic listhesis. Grade 1 retrolisthesis of C4 onto C5. Vertebrae: No acute fracture. The vertebral body heights are maintained. Multilevel degenerative disc disease with posterior disc osteophyte complexes resulting in at least moderate central canal stenosis at C5-6. Soft Tissues: No prevertebral or subcutaneous hematoma. Calcific plaque of the cervical carotid arteries. Other: Visualization of the pulmonary parenchyma is limited by patient motion. CT/Spine Cervical without Contras IMPRESSION: NO ACUTE CERVICAL FRACTURE. DEGENERATIVE CHANGES. Reading Location: [id number]
--- NOTE | 2024-12-29 18:15 | EDS_ITS ---
HPI <GWYN Quiles - Last Filed: 12/29/24 19:05> History of Present Illness Chief Complaint: Fall Narrative Narrative: Patient is an 79-year-old female who is on Eliquis for atrial fibrillation, dementia, lower leg edema who [facility] after mechanical fall. Pay states that she lost her balance, striking the back of her head. Her could not get her up and had to come by ambulance. Patient denies any LOC. Per the , the patient is slightly confused at times secondary to her dementia. He believes the last time she took Eliquis was this morning. [facility] <GWYN Quiles - Last Filed: 12/29/24 19:05> [facility] Medical History Afib Hyperlipemia Hypertension Stroke Home Medications ?Medication ?Instructions ?Recorded ?Last Taken ?Type multivitamin with folic acid 400 1 tab PO DAILY Unknown History mcg tablet (Thera) apixaban 2.5 mg tablet (Eliquis) 2.5 mg PO BID blood t hinner #60 12/12/23 Unknown Rx tabs carvedilol 12.5 mg tablet 12.5 mg PO BIDCM #60 tabs Unknown Rx amlodipine 2.5 mg tablet 2.5 mg PO DAILY blood pressu re 12/29/24 Unknown History memantine 5 mg tablet 5 mg PO BID 12/29/24 Unknown History tramadol 50 mg tablet 50 mg PO BID PRN PRN pain Unknown History Allergy/AdvReac Type Severity Reaction Status Date / Time No Known Allergies Allergy Verified 12/29/24 18:04 Social History Smoking Status: Former smoker ROS <GWYN Quiles - Last Filed: 12/29/24 19:05> ROS ED ROS Narrative Constitutional: Negative for fever, chills, weight loss, weakness Eyes: Negative for vision loss, vision change, double vision ENT: Negative for any sore throat, ear pain, congestion Cardiovascular: Negative for any chest pain, tightness, palpitations Respiratory: Negative for any cough, sputum production, hemoptysis, dyspnea, dyspnea on exertion, orthopnea Gastrointestinal: Negative for any abdominal pain, nausea, vomiting, diarrhea, constipation, blood in stool, blood in vomit : Negative for any urinary frequency, dysuria, retention, blood in urine Muscle skeletal: Negative for any neck pain, back pain Neurological: Negative for any syncope, dizziness. Positive headache, head injury Skin: Negative for any rashes, itching, abrasions, lacerations Psychiatric: Negative for any depression, anxiety, stress, suicidal ideation, homicidal ideation Hematologic: Negative for any excessive bruising, easy bleeding EXAM <DALIA QuilesC - Last Filed: 12/29/24 19:05> Physical Exam Narrative Exam Narrative: Vital signs reviewed. Patient is acting appropriate per her . HEET: patient does have hematoma to the occiput, TMs clear bilaterally. Posterior pharynx is clear, moist mucous membranes. Nares clear bilaterally. Pupils are equal round reactive to light. Negative for any hemotympanum, septal hematoma. Neck: Supple with no lymphadenopathy or tenderness. No signs of meningismus. Cardiac: Regular rate and rhythm no murmurs gallops or rubs, equal peripheral pulses bilaterally. Respiratory: Lungs clear to auscultation bilaterally. No chest tenderness. Abdomen: Soft, nontender, nondistended. No abdominal bruit or pulsatile masses. No hepatosplenomegaly Extremities: No peripheral edema, no signs of gross trauma or deformity. Active full range of motion of all extremities. Neuro: Cranial nerves II through XII intact, no focal neurological deficits. Skin: Clean dry and intact with no rash, purpura, petechiae, vesicles or pustules. Backs/flank: No CVA tenderness, no midline spinal tenderness, no deformity. Psych: Normal mood and affect. No SI, HI or acute psychosis. Const Vital Signs: 12/29/24 18:04 12/29/24 19:03 12/29/24 19:18 Temperature 96.9 F L 97.5 F L Temperature Source Temporal Pulse Rate 70 75 Respiratory Rate 18 14 Respiratory Effort Normal Respiratory Depth Normal Respiratory Pattern Normal Blood Pressure 182/95 H 135/70 H Blood Pressure Mean 124 91 Pulse Ox 100 95 Oxygen Delivery Method Room Air Room Air Positive well nourished and well developed General Appearance ED: well developed <Dr. Celestine Sanchez DO - Last Filed: 12/29/24 19:21> Physical Exam Const Vital Signs: 12/29/24 18:04 12/29/24 19:03 12/29/24 19:18 Temperature 96.9 F L 97.5 F L Temperature Source Temporal Pulse Rate 70 75 Respiratory Rate 18 14 Respiratory Effort Normal Respiratory Depth Normal Respiratory Pattern Normal Blood Pressure 182/95 H 135/70 H Blood Pressure Mean 124 91 Pulse Ox 100 95 Oxygen Delivery Method Room Air Room Air [facility] <GWYN Quiles - Last Filed: 12/29/24 19:05> [facility] Radiography Diagnostic Testing: Clinical Impression(s) from Imaging Studies Brain CT 12/29/24 18:14 IMPRESSION: 1. No acute intracranial finding. 2. Moderate-sized hematoma along the right posterior scalp. 3. Stable findings of remote infarcts, chronic microvascular ischemic changes and age-related changes. Reading Location: [facility] Cervical Spine CT 12/29/24 18:14 IMPRESSION: NO ACUTE CERVICAL FRACTURE. DEGENERATIVE CHANGES. Reading Location: [facility] Treatment and Re-Evaluation :: Differential diagnosis includes however is not limited to: Closed head injury, concussion, skull fracture, intracranial bleeding, cervical strain Patient appears generally well, vital signs are stable, patient is nontoxic- appearing. Patient slightly hypertensive however patient appears to be in no distress. Physical examination does show a hematoma to the occiput. Patient has no pain to her lower back mid back or neck. Patient will receive a CT scan of the brain, cervical spine as well as oral Tylenol. All radiologic examinations were read, reviewed by the emergency department attending. From these reads, a plan of care will be put in place. Patient CT scan of the brain shows no acute intracranial finding. There is a moderate size hematoma along the right posterior scalp. Stable findings of remote infarcts. Patient CT scan of cervical spine was negative for any fracture. At this time, patient be discharged home. She is instructed to continue to use Tylenol, did not miss any doses of her Eliquis. She was given strict return precaution. I spoke with the patient as well as the patient , all are in agreement. Stable for discharge <Dr. Celestine Sanchez DO - Last Filed: 12/29/24 19:21> [facility]DM Radiography Diagnostic Testing: Clinical Impression(s) from Imaging Studies Brain CT 12/29/24 18:14 IMPRESSION: 1. No acute intracranial finding. 2. Moderate-sized hematoma along the right posterior scalp. 3. Stable findings of remote infarcts, chronic microvascular ischemic changes and age-related changes. Reading Location: [facility] Cervical Spine CT 12/29/24 18:14 IMPRESSION: NO ACUTE CERVICAL FRACTURE. DEGENERATIVE CHANGES. Reading Location: [facility] Treatment and Re-Evaluation :: Differential diagnosis includes however is not limited to: Closed head injury, concussion, skull fracture, intracranial bleeding, cervical strain Patient appears generally well, vital signs are stable, patient is nontoxic- appearing. Patient slightly hypertensive however patient appears to be in no distress. Physical examination does show a hematoma to the occiput. Patient has no pain to her lower back mid back or neck. Patient will receive a CT scan of the brain, cervical spine as well as oral Tylenol. All radiologic examinations were read, reviewed by the emergency department attending. From these reads, a plan of care will be put in place. Patient CT scan of the brain shows no acute intracranial finding. There is a moderate size hematoma along the right posterior scalp. Stable findings of remote infarcts. Patient CT scan of cervical spine was negative for any fracture. Patient's blood pressure improved 135/70. At this time, patient be discharged home. She is instructed to continue to use Tylenol, did not miss any doses of her Eliquis. She was given strict return precaution. I spoke with the patient as well as the patient , all are in agreement. Stable for discharge ED attending note: I evaluated the patient in conjunction with the STEVE. I agree with his/her statements and above findings. I have personally performed a face to face assessment of the patient and have reviewed the STEVE Note. I performed a substantive portion of the visit including all aspects of the following. I personally saw the patient performed chart review, physical exam, reviewed labs, imaging (if obtained), and formulated a treatment and management plan. This note was generated with [employer] software. It may contain incorrect words, spelling, and punctuation that were not noted in review of the chart prior to signing. Discharge Plan Triage Chief Complaint: Fall ED Midlevel Provider: Eduardo Graham ED Provider: Celestine Sanchez Dx/Rx/DC Orders Clinical Impression: Fall, Head injury, Hematoma Instructions: After a Concussion, ED Head Injury (Adult), ED Hematoma Prescriptions: No Action multivitamin with folic acid [Thera] 1 TABLET tablet 1 tab PO DAILY Patient Comments: supplement carvedilol 12.5 mg Tablet 12.5 mg PO BIDCM Qty: 60 0RF Eliquis 2.5 mg tablet 2.5 mg PO BID Qty: 60 0RF amlodipine 2.5 mg tablet 2.5 mg PO DAILY tramadol 50 mg tablet 50 mg PO BID PRN PRN (Reason: pain) memantine 5 mg tablet 5 mg PO BID Primary Care Provider: Kimberly Wheeler Referrals: Kimberly Wheeler MD [Primary Care Provider] - Activity Restrictions/Additional Instructions: Your brain scan as well as your neck scan today were negative. Take Tylenol for your headaches. You may use ice for your hematoma to the back of your head. Return for any worsening pain, nausea or vomiting or altered mental status. Print Language: Sinhala Disposition Disposition: Home, Self Care
[2024-12-29] MEDS: Acetaminophen 500 MG Tablet 1000 MG PO (18:24)
[2024-12-29 19:18] VITALS: BP 135/70; PULSE 75; RESP 14; TEMP 36.4; O2SAT 95
== END 2024-12-29 19:20 | disposition home or self-care (01) ==
PROVIDERS: Emergency Provider Emergency Medicine; PCP Internal Medicine Geriatric Medicine; Visit Provider Emergency Medicine
DX: S00.03XA Contusion of scalp, initial encounter (principal); F03.90 Unspecified dementia, unspecified severity, without behavioral disturbance, psychotic disturbance, mood disturbance, and anxiety; I48.91 Unspecified atrial fibrillation; W18.39XA Other fall on same level, initial encounter; I10 Essential (primary) hypertension; Z79.01 Long term (current) use of anticoagulants; Z79.899 Other long term (current) drug therapy; Z86.73 Personal history of transient ischemic attack (TIA), and cerebral infarction without residual deficits; Z87.891 Personal history of nicotine dependence
CPT/HCPCS: 70450; 72125; 99282